=== PATIENT | female | born 1985 | race Caucasian/White ===

== ENCOUNTER 2017-05-13 20:36 | Observation (INO) | payer MEDICAID ==
[2017-05-13] MEDS ORDERED: NIFEdipine 10 MG CAP PO ONE (21:15)
[2017-05-13 21:28] LABS: % IMMATURE GRANULYOCYTES 1.5 % (0.0-1.1); ABSOLUTE IMMATURE GRANULOCYTES 0.13 10^3/uL (0.00-0.10); ADD DIFF? NO; ADD MORPH? YES; ADD SCAN? NO; ATYPICAL LYMPHOCYTE FLAG 10 (0-99); FRAGMENT RBC FLAG 40 (0-99); HEMATOCRIT 35.1 % (38.0-47.0); HEMOGLOBIN 11.4 g/dL (12.6-16.3); LEFT SHIFT FLG 10 (0-99); LIPEMIA HEMOLYSIS FLAG 80 (0-99); MEAN CELL HEMOGLOBIN CONCENTR. 32.5 g/dL (32.4-36.7); MEAN PLATELET VOLUME 10.1 fL (8.7-11.7); PLATELET CLUMPS FLAG 0 (0-99); PLATELET COUNT 172 10^3/uL (150-400); RED BLOOD CELL COUNT 4.56 10^6/uL (4.18-5.33)
[2017-05-13 21:30] LABS: RED CELL DISTRIBUTION WIDTH 25.3 % (11.5-15.2)
[2017-05-13 21:30] LABS: COLOR YELLOW; LEUKOCYTE ESTERASE,URINE NEGATIVE (NEGATIVE); NITRITE,URINE NEGATIVE (NEGATIVE)
[2017-05-13] MEDS ORDERED: LR 1,000 ML IV ONE (21:30)
[2017-05-13 22:20] LABS: MICROCYTES 2+
[2017-05-13 22:21] LABS: HYPOCHROMIA 2+; PLATELET ESTIMATE ADEQUATE (ADEQ)
[2017-05-13 22:39] LABS: PHENCYCLIDINE URINE BCH < 6 ng/ml (NEGATIVE); PHENCYCLIDINE URINE BCH NEGATIVE (NEGATIVE); TETRAHYDROCANNABINOL URINE < 5 ng/mL (NEGATIVE); TETRAHYDROCANNABINOL URINE NEGATIVE (NEGATIVE)
--- NOTE | 2017-05-13 22:50 | GHP ---
[f rep st] PREOP HISTORY AND PHYSICAL DATE OF ADMISSION: 05/13/2017 CHIEF COMPLAINT: Contractions. HISTORY OF PRESENT ILLNESS: Geovanny is a 31-year-old, G 9, P0-3-5-2 female who is at 28 and 6 week s gestation by 8 week ultrasound, who presents with complaints of painful contractions that happened after being at work all day and walking. She has a history of 2 previous deliveries. She is not currently on 17-hydroxyprogesterone. 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 GYNECOLOGICAL HISTORY: She has had 2 miscarriages, 2 therapeutic abortions, 1 demise and 2 pr eterm births. MEDICATIONS: Include iron, vitamins and Suboxone as well as Lovenox twice daily. She is negative for Factor V Leiden. REVIEW OF SYSTEMS: Is positive for painful contractions. She denies any loss of fluid or vaginal b leeding. PHYSICAL EXAMINATION: VITAL SIGNS: Stable. GENERAL: She is in no apparent distress. ABDOMEN: S oft, nontender. Her cervix is closed, long, and high. heart tones are in the 150s with moder ate variability. She was initially lillian approximately every 2 minutes, which resolved after 1 dose of nifedipine and IV fluid bolus. ASSESSMENT AND PLAN: This is a 31-year-old, G9, P0-3-5-2 female who is at 28 and 6 weeks gestation, had contractions which have now resolved and her cervix not dilated. Will plan on discharg e home. Labor precautions given. She will follow up with her primary riffler tender. /[id number]/MODL
== END 2017-05-13 22:30 | disposition home or self-care (01) ==
LOC: FLD 20:36
PROVIDERS: ADMIT Obstetrics & Gynecology; ATTEND Obstetrics & Gynecology
DX: O60.03 Preterm labor without delivery, third trimester (principal); Z3A.38 38 weeks gestation of pregnancy; O09.213 Supervision of pregnancy with history of pre-term labor, third trimester; O09.293 Supervision of pregnancy with other poor reproductive or obstetric history, third trimester
CPT/HCPCS: 80307; G0480

== ENCOUNTER 2017-05-22 13:26 | Emergency (ER) | payer MEDICAID ==
[2017-05-22 13:37] VITALS: RESP 16; TEMP 98.1
--- NOTE | 2017-05-22 14:28 | CPEKG ---
Heart Rate: 78 RR Interval: 769 P-R Interval: 108 QRSD Interval: 72 QT Interval: 384 QTC Interval: 438 P Gray: 40 QRS Gray: 52 T Wave Gray: 21 EKG Severity - BORDERLINE ECG - EKG Impression: SINUS RHYTHM EKG Impression: SHORT NV INTERVAL, ACCELERATED AV CONDUCTION Electronically Signed By: Iraida Topete 22-May-2017 20:51:23
--- NOTE | 2017-05-22 14:28 | EDPHY ---
H & P Time Seen by Provider: 05/22/17 14:14 HPI/ROS: CHIEF COMPLAINT: Possible seizure, 8 months HISTORY OF PRESENT ILLNESS: This patient is an anticoagulated 31 year old female who is 8 months arriving via EMS following a possible seizure or syncopal episode shortly prior to arrival. She was sitting and began to feel hot and dizzy and got up to go to the bathroom. She felt lightheaded and sat again, then fell to the left and passed out and woke up on floor with her head on her backpack. She denies hitting her head. No prior history of fainting. She currently has a headache which she believes may be a tension headache, localized to the right side. She rates the severity at 8/10. She has had previous similar headaches. She felt nauseous this morning and hasn't eaten much today. She denies current nausea, abdominal pain, or other associated symptoms. She has been taking Suboxone for 5 months to treat heroin withdrawal. She does have history of DVTs with and is currently taking Lovenox. REVIEW OF SYSTEMS: Constitutional: No fever, no chills Eyes: No visual changes ENT: No sore throat Respiratory: No cough, no shortness of breath Cardiac: No chest pain Gastrointestinal: No nausea, no vomiting, no abdominal pain Genitourinary: No hematuria, no dysuria Musculoskeletal: No leg pain or swelling Skin: No rash Neurological: no numbness, no weakness Psychiatric: No depression Past Medical/Surgical History: Blood clots, heroin withdrawal (Suboxone) Social History: Lives in [place]. Sees OB doctor at [facility] [place]. Smoking Status: Current every day smoker Physical Exam: General Appearance: Alert, pleasant Eyes: Pupils equal and round, no conjunctival pallor or injection ENT, Mouth: Mucous membranes moist Neck: Normal inspection Respiratory: Lungs are clear to auscultation Cardiovascular: Regular rate and rhythm Gastrointestinal: Abdomen is soft, gravid and non- tender Neurological: Alert, oriented x3, cranial nerves II through XII intact, motor 5 /5, sensory intact to light touch, normal gait. Skin: Warm and dry, no rash Extremities: Nontender, no pedal edema Psychiatric: Mood and affect normal Constitutional: Initial Vital Signs Temperature (C) 36.7 C 05/22/17 13:35 Heart Rate 73 05/22/17 13:35 Respiratory Rate 16 08/09/17 13:35 Blood Pressure 123/67 H 05/22/17 13:35 O2 Sat (%) 97 05/22/17 13:35 O2 Delivery Mode Room Air Allergies/Adverse Reactions: No Known Allergies Allergy (Unverified 05/01/15 11:11) Home Medications: Medication Instructions Recorded Ondansetron Odt [Zofran Odt 4 mg 4 mg PO Q4 PRN #10 tab 05/01/15 (RX)] Lovenox 05/22/17 SUBOXONE 8mg/2mg 05/22/17 Medical Decision Making ED Course/Re-evaluation: This is an 8 month female who presents after a syncopal episode. I doubt primary seizure in this patient, given prodromal symptoms of dizziness and diaphoresis. She did not hit her head. However she has a moderate tension headache. Tylenol given at her request. She did not eat breakfast this morning so she was given food and fluids. There is no evidence of preeclampsia/ eclampsia, with a normal blood pressure, no proteinuria and normal labs. 15:40 Reassessed the patient. She is feeling better. Plan to discharge home in good condition when her ride arrives. I will continue to observe her until that time. The patient is comfortable with this plan. 16:28 Reassessed patient. Her headache has nearly completely resolved after Tylenol. I do not suspect intracranial hemorrhage or primary seizure in this patient. Plan to proceed with discharge as above. She will follow up with her OB doctor. Differential Diagnosis: Differential diagnosis includes though is not limited to cardiac dysrhythmia, CVA, TIA, GI bleed, sepsis, hypoglycemia. - Data Points Laboratory Results: Laboratory Results 05/22/17 14:15 05/22/17 14:15 05/22/17 05/22/17 14:15 14:15 WBC 9.28 10^3/uL 10^3/uL (3.80-9.50) RBC 4.51 10^6/uL 10^6/uL (4.18-5.33) Hgb 11.4 g/dL L g/dL (12.6-16.3) Hct 36.0 % L % (38.0-47.0) MCV 79.8 fL L fL (81.5-99.8) MCH 25.3 pg L pg (27.9-34.1) MCHC 31.7 g/dL L g/dL (32.4-36.7) RDW 24.7 % H % (11.5-15.2) Plt Count 240 10^3/uL 10^3/uL (150-400) MPV 10.5 fL fL (8.7-11.7) Neut % (Auto) 62.4 % % (39.3-74.2) Lymph % (Auto) 27.0 % % (15.0-45.0) Grand % (Auto) 6.6 % % (4.5-13.0) Eos % (Auto) 0.8 % % (0.6-7.6) Baso % (Auto) 0.6 % % (0.3-1.7) Nucleat RBC Rel Count 0.0 % % (0.0-0.2) Absolute Neuts (auto) 5.79 10^3/uL 10^3/uL (1.70-6.50) Absolute Lymphs (auto) 2.51 10^3/uL 10^3/uL (1.00-3.00) Absolute Monos (auto) 0.61 10^3/uL 10^3/uL (0.30-0.80) Absolute Eos (auto) 0.07 10^3/uL 10^3/uL (0.03-0.40) Absolute Basos (auto) 0.06 10^3/uL 10^3/uL (0.02-0.10) Absolute Nucleated RBC 0.00 10^3/uL 10^3/uL (0-0.01) Immature Gran % 2.6 % H % (0.0-1.1) Immature Gran # 0.24 10^3/uL H 10^3/uL (0.00-0.10) Platelet Estimate ADEQUATE (ADEQ) Hypochromasia 1+ H Oval Macrocytes 1+ H Sodium 135 mEq/L mEq/L (134-144) Potassium 3.7 mEq/L mEq/L (3.5-5.2) Chloride 104 mEq/L mEq/L (97-110) Carbon Dioxide 21 mEq/l L mEq/l (22-31) Anion Gap 10 mEq/L mEq/L (8-16) BUN 7 mg/dL mg/dL (7-23) Creatinine 0.7 mg/dL mg/dL (0.6-1.0) Estimated GFR > 60 Glucose 78 mg/dL mg/dL (70-100) Calcium 8.9 mg/dL mg/dL (8.5-10.4) Total Bilirubin 0.3 mg/dL mg/dL (0.1-1.4) Conjugated Bilirubin 0.3 mg/dL mg/dL (0.0-0.5) Unconjugated Bilirubin 0.0 mg/dL mg/dL (0.0-1.1) AST 17 IU/L IU/L (14-46) ALT 28 IU/L IU/L (9-52) Alkaline Phosphatase 72 IU/L IU/L (38-126) Total Protein 5.9 g/dL L g/dL (6.3-8.2) Albumin 3.1 g/dL L g/dL (3.5-5.0) Medications Given: Discontinued Medications Acetaminophen (Tylenol) 650 mg PO EDNOW ONE Stop: 05/22/17 14:44 Last Admin: 05/22/17 14:54 Dose: 650 mg Departure - Departure Disposition: Home, Routine, Self-Care Clinical Impression: Syncope Qualifiers: Syncope type: vasovagal syncope Qualified Code(s): R55 - Syncope and collapse Condition: Good Instructions: Syncope (ED) Additional Instructions: 1. Follow up with your OB doctor in 1-2 days. We have also referred you to our OB doctor solution design engineer in case you have trouble following up with your regular OB. 2. Return to the emergency department for repeat episodes of fainting, severe headache, shortness of breath, chest pain, weakness or numbness, or other worsening of condition. Referrals: Georgie Roberts MD [Medical Doctor] - As per Instructions Report Scribed for: Iraida Topete Report Scribed by: Mona Calderon Date of Report: 05/22/17 Time of Report: 14:27 Physician Review and Approval Statement: 05/22/17 14:27 Portions of this note were transcribed by a medical center representative. I personally performed a history, physical exam, medical decision making, and confirmed accuracy of information the transcribed note.
[2017-05-22 14:31] VITALS: O2SAT 95
[2017-05-22 14:35] LABS: % IMMATURE GRANULYOCYTES 2.6 % (0.0-1.1); ABSOLUTE IMMATURE GRANULOCYTES 0.24 10^3/uL (0.00-0.10); ADD DIFF? NO; ADD MORPH? YES; ADD SCAN? NO; ATYPICAL LYMPHOCYTE FLAG 10 (0-99); FRAGMENT RBC FLAG 60 (0-99); HEMOGLOBIN 11.4 g/dL (12.6-16.3); LEFT SHIFT FLG 20 (0-99); LIPEMIA HEMOLYSIS FLAG 80 (0-99); MEAN CELL HEMOGLOBIN 25.3 pg (27.9-34.1); MEAN CELL HEMOGLOBIN CONCENTR. 31.7 g/dL (32.4-36.7); MEAN CELL VOLUME 79.8 fL (81.5-99.8); MEAN PLATELET VOLUME 10.5 fL (8.7-11.7); PLATELET CLUMPS FLAG 10 (0-99); PLATELET COUNT 240 10^3/uL (150-400); RED BLOOD CELL COUNT 4.51 10^6/uL (4.18-5.33)
[2017-05-22 14:39] LABS: RED CELL DISTRIBUTION WIDTH 24.7 % (11.5-15.2)
[2017-05-22] MEDS ORDERED: ACETAMINOPHEN 325 MG TAB PO ONE (14:43)
[2017-05-22 14:53] LABS: ALANINE AMINOTRANSFERASE 28 IU/L (9-52); ALBUMIN 3.1 g/dL (3.5-5.0); ALKALINE PHOSPHATASE 72 IU/L (38-126); ANION GAP 10 mEq/L (8-16); ASPARTATE AMINOTRANSFERASE 17 IU/L (14-46); BILIRUBIN,TOTAL 0.3 mg/dL (0.1-1.4); BILIRUBIN-CONJUGATED 0.3 mg/dL (0.0-0.5); CALCIUM 8.9 mg/dL (8.5-10.4); CARBON DIOXIDE 21 mEq/l (22-31); CHLORIDE 104 mEq/L (97-110); CREATININE 0.7 mg/dL (0.6-1.0); GLOMERULAR FILTRATION RATE > 60; GLUCOSE 78 mg/dL (70-100); POTASSIUM 3.7 mEq/L (3.5-5.2); SODIUM 135 mEq/L (134-144); TOTAL PROTEIN 5.9 g/dL (6.3-8.2)
[2017-05-22 15:43] LABS: HYPOCHROMIA 1+; MACROCYTES 1+; PLATELET ESTIMATE ADEQUATE (ADEQ)
[2017-05-22 16:58] VITALS: BP 97/61; PULSE 77
== END 2017-05-22 16:54 | disposition home or self-care (01) ==
LOC: EDUNIT#
DX: O99.89 Other specified diseases and conditions complicating pregnancy, childbirth and the puerperium (principal); R55 Syncope and collapse; F17.200 Nicotine dependence, unspecified, uncomplicated; Z3A.00 Weeks of gestation of pregnancy not specified

== ENCOUNTER 2017-06-27 11:15 | Observation (INO) | payer MEDICAID ==
--- NOTE | 2017-06-27 12:04 | SOAPPROG ---
SOAP Progress Note Assessment/Plan: Assessment: 31yo @ 35-2wks by 8wk US No evidence of PTL or SROM h/o DVT- currently on anticoagulants Opiate Dependence h/o demise Plan: f/u with OB provider cont meds at home UDS, gc/ct, GBS collected d/c home at this time FKC and PTL prec discussed 06/27/17 12:01 06/27/17 13:36 Subjective: Pt presents to L&D with complaints of contractions and pelvic pressure. She denies any LOF, VB. She reports +FM. ROS: 10-point ROS reviewed negative except as pertinent in HPI. Neuro: denies any headaches HEENT: denies any sore throat, congestion CV: denies any CP Resp: denies any SOB, wheezing GI: denies any N/V/diarrhea/constipation : denies any dysuria, urgency pelvic: denies any VB psych: denies any depression/anxiety Skin: denies any rashes Objective: VSS Exam: constitutional: A&Ox3 CV: RRR, no murmur Resp: CTA-B Abd: soft, nontender, gravid SVE: 1/th/high Extremities: trace edema FHR: cat 1 FHR tracing - Time Spent With Patient Time Spent With Patient: approx 45min was spent with patient of which >50% , 20 min, was spent on direct/ face to face counseling and coordination of care. - Pending Discharge Pending Discharge Within 24 Hours: Yes Pending Discharge Date: 06/28/17 Pending Discharge Time: 11:00 ICD10 Worksheet Patient Problems: Problems Problem Status Onset Labor, false (Rich-Hickman), antepartum Acute Opioid dependence Acute
[2017-06-27 15:43] LABS: PHENCYCLIDINE URINE BCH < 6 ng/ml (NEGATIVE); PHENCYCLIDINE URINE BCH NEGATIVE (NEGATIVE); TETRAHYDROCANNABINOL URINE < 5 ng/mL (NEGATIVE); TETRAHYDROCANNABINOL URINE NEGATIVE (NEGATIVE)
== END 2017-06-27 13:30 | disposition home or self-care (01) ==
LOC: FLD 11:15
PROVIDERS: ADMIT Advanced Practice Midwife; ATTEND Obstetrics & Gynecology
DX: O47.03 False labor before 37 completed weeks of gestation, third trimester (principal); Z3A.35 35 weeks gestation of pregnancy
CPT/HCPCS: 80307; G0480

== ENCOUNTER 2017-06-30 15:16 | Emergency (ER) | payer MEDICAID ==
[2017-06-30 15:36] VITALS: BP 122/68; PULSE 85; RESP 18; TEMP 98.4; O2SAT 96
--- NOTE | 2017-06-30 15:48 | EDPHY ---
H & P Stated Complaint: 39 weeks preg, need refill Suboxone till apt . HPI/ROS: Chief complaint: Suboxone refill History of present illness: 31 year old female who is 39 weeks presents for Suboxone refill. Patient states she has a few doses get her through until she can see her doctor this week. She has no specific complaints at this time. - Personal History LMP (Females 10-55): Current Tetanus/Diphtheria Vaccine: Unsure Current Tetanus Diphtheria and Acellular Pertussis (TDAP): Unsure - Medical/Surgical History Hx Asthma: No Hx Chronic Respiratory Disease: No Hx Diabetes: No Hx Cardiac Disease: No Hx Renal Disease: No Hx Cirrhosis: No Hx Alcoholism: No Hx HIV/AIDS: No Hx Splenectomy or Spleen Trauma: No Other PMH: DVT L Leg- at present 1500hrs 06/30/2017, suboxone use history of drug abuse. - Social History Smoking Status: Former smoker - Physical Exam Exam: General: Alert, nontoxic Skin: Warm, no rashes. Constitutional: Initial Vital Signs Temperature (C) 36.9 C 06/30/17 15:31 Heart Rate 85 06/30/17 15:31 Respiratory Rate 18 06/30/17 15:31 Blood Pressure 122/68 H 06/30/17 15:31 O2 Sat (%) 96 06/30/17 15:31 O2 Delivery Mode Room Air Allergies/Adverse Reactions: No Known Allergies Allergy (Verified 06/30/17 15:36) Home Medications: Medication Instructions Recorded Lovenox 05/22/17 SUBOXONE 8mg/2mg 05/22/17 Medical Decision Making ED Course/Re-evaluation: Patient is discussed with my primary supervising physician Dr. Iraida Topete. Patient presents to the emergency department for a Suboxone refill. I have discussed with the patient that we do not refill these medications in the emergency department. She states it is her OBGYN that normally prescribes it to her from [facility]. I have recommended she go to [facility] for a refill of her Suboxone. Departure - Departure Disposition: Home, Routine, Self-Care Clinical Impression: Medication refill Condition: Good Referrals: BELKIS PANIAGUA [Other] - As per Instructions
== END 2017-06-30 15:52 | disposition home or self-care (01) ==
DX: Z76.0 Encounter for issue of repeat prescription (principal); Z87.891 Personal history of nicotine dependence; Z3A.39 39 weeks gestation of pregnancy

== ENCOUNTER 2017-07-08 20:15 | Observation (INO) | payer MEDICAID | END 2017-07-08 22:29 | disposition home or self-care (01) | LOC: FLD 20:15 | PROVIDERS: ADMIT Obstetrics & Gynecology; ATTEND Obstetrics & Gynecology | DX: O26.853 Spotting complicating pregnancy, third trimester (principal); Z3A.36 36 weeks gestation of pregnancy | CPT/HCPCS: 59025; G0378 ==

== ENCOUNTER 2017-07-18 23:35 | Inpatient (IN) | payer MEDICAID ==
[2017-07-19] MEDS ORDERED: TERBUTALINE SULFATE 1 MG/ML VIAL IV PRN (00:35)
[2017-07-19] MEDS ORDERED: OXYTOCIN/RINGERS LACTATE 1,000 ML IV PRN (00:35)
[2017-07-19] MEDS ORDERED: LR 1,000 ML IV PRN (00:35)
[2017-07-19] MEDS ORDERED: IBUPROFEN 600 MG TAB PO PRN (00:35)
[2017-07-19] MEDS ORDERED: OLIVE OIL 118 ML BTL MISC PRN (00:35)
[2017-07-19] MEDS ORDERED: EPSOM SALT 454 GM TP PRN (00:35)
[2017-07-19] MEDS ORDERED: AMPICILLIN SODIUM 2 GM in NS 100 ML IV ONE (00:35)
[2017-07-19 00:57] LABS: % IMMATURE GRANULYOCYTES 1.6 % (0.0-1.1); ABSOLUTE IMMATURE GRANULOCYTES 0.25 10^3/uL (0.00-0.10); ADD DIFF? NO; ADD MORPH? NO; ADD SCAN? NO; ATYPICAL LYMPHOCYTE FLAG 0 (0-99); FRAGMENT RBC FLAG 20 (0-99); HEMATOCRIT 36.6 % (38.0-47.0); HEMOGLOBIN 12.2 g/dL (12.6-16.3); LEFT SHIFT FLG 10 (0-99); LIPEMIA HEMOLYSIS FLAG 80 (0-99); MEAN CELL HEMOGLOBIN 27.6 pg (27.9-34.1); MEAN CELL HEMOGLOBIN CONCENTR. 33.3 g/dL (32.4-36.7); MEAN CELL VOLUME 82.8 fL (81.5-99.8); MEAN PLATELET VOLUME 10.7 fL (8.7-11.7); PLATELET CLUMPS FLAG 0 (0-99); PLATELET COUNT 186 10^3/uL (150-400); RED BLOOD CELL COUNT 4.42 10^6/uL (4.18-5.33); RED CELL DISTRIBUTION WIDTH 18.7 % (11.5-15.2)
[2017-07-19] MEDS ORDERED: LIDOCAINE 1% 300 MG/30 ML SDV ONE (01:14)
[2017-07-19] MEDS ORDERED: AMMONIA AROMATIC 1 EACH AMP IH ONE (01:14)
[2017-07-19] MEDS ORDERED: OLIVE OIL 118 ML BTL ONE (01:14)
[2017-07-19] MEDS ORDERED: TERBUTALINE SULFATE 1 MG/ML VIAL ONE (01:14)
[2017-07-19] MEDS ORDERED: MISOPROSTOL 200 MCG TAB ONE (01:15)
[2017-07-19] MEDS ORDERED: OXYTOCIN 10 UNIT/ML VIAL ONE (01:15)
[2017-07-19] MEDS ORDERED: fentaNYL 2MCG/ML/BUP 0.1% RTU 100 ML BAG EP ONE (01:48)
[2017-07-19] MEDS ORDERED: PHENYLEPHRINE HCL 100 MCG/ML SYR ONE (01:48)
[2017-07-19] MEDS ORDERED: BUPIVACAINE 0.25% 30 ML SDV ONE (01:48)
[2017-07-19] MEDS ORDERED: fentaNYL 100 MCG/2 ML INJ ONE ×2 (01:49→01:54)
--- NOTE | 2017-07-19 03:02 | PREANESOB ---
Obstetric Pre-Anesthesia Info - General Info Proposed Procedure: Labor and delivery. : 7 Para: 2 WBD: 38 - Info Status: Full Term Monitors: External FHR Baseline (bpm): 135 FHR Pattern: Reassuring - Labor Status Cervical Dilation per last OB SVE: 3 Indications for Labor Analgesia: Pain Control Labor Epidural: Proposed Anesthesia ROS: Past tonsillectomy and labor epidural x 2. Allergies/Adverse Reactions: Allergy/AdvReac Type Severity Reaction Status Date / Time No Known Allergies Allergy Verified 06/30/17 15:36 Home Medications: Medication Instructions Recorded Lovenox 60 mg SQ BID 05/22/17 SUBOXONE 8mg/2mg 1 mg PO BID 05/22/17 1 tab PO DAILY 07/19/17 Visit Medications: Generic Name Dose Route Start Last Admin Trade Name Freq PRN Reason Stop Dose Admin Ampicillin Sodium 1 gm/ Sodium 100 mls @ 200 mls/hr 07/19/17 04:36 Chloride IV 08/18/17 04:35 Q4H ALEXANDER Protocol Lactated Ringer's 1,000 mls @ 0 mls/hr 07/19/17 00:35 07/19/17 00:33 Lr IV 01/15/18 00:34 1,000 mls PRN PRN Administration SEE PROTOCOL CONDITIONS Protocol Per Protocol Oxytocin/Lactated Ringer's 1,000 mls @ 150 mls/hr 07/19/17 00:35 Pitocin 20 Units/Lr (Premix) IV PRN PRN Post- bleeding Ibuprofen 600 mg 07/19/17 00:35 Motrin PO 01/15/18 00:34 Q6HRS PRN post , inflammation Magnesium Sulfate 454 gm 07/19/17 00:35 Epsom Salt TP 01/15/18 00:34 Q1H PRN perineal discomfort [place] Oil 118 ml 07/19/17 00:35 Sweet Oil MISC 01/15/18 00:34 ONCE PRN perineal massage Terbutaline Sulfate 0.25 mg 07/19/17 00:35 Brethine IV 01/15/18 00:34 ONCE PRN Tachysystole Discontinued Medications Generic Name Dose Route Start Last Admin Trade Name Freq PRN Reason Stop Dose Admin Ammonia (Aromatic Spirit) Confirm 07/19/17 01:14 Ammonia Aromatic Administered 07/19/17 01:15 Dose 1 each IH .STK-MED ONE Bupivacaine HCl Confirm 07/19/17 01:48 Sensorcaine 0.25% Sdv Administered 07/19/17 01:49 Dose 30 ml .ROUTE .STK-MED ONE Fentanyl Confirm 07/19/17 01:49 Sublimaze Administered 07/19/17 01:50 Dose 100 mcg .ROUTE .STK-MED ONE Fentanyl Confirm 07/19/17 01:54 Sublimaze Administered 07/19/17 01:55 Dose 100 mcg .ROUTE .STK-MED ONE Fentanyl/Bupivacaine HCl Confirm 07/19/17 01:48 Fentanyl/Bupivacaine/Ns 2 Mcg/Ml 0.1% (Premix Administered 07/19/17 01:49 Dose 100 ml EP .STK-MED ONE Ampicillin Sodium 2 gm/ Sodium 110 mls @ 220 mls/hr 07/19/17 00:35 07/19/17 00:52 Chloride IV 07/19/17 01:04 110 mls ONCE ONE Administration Protocol Lidocaine HCl Confirm 07/19/17 01:14 Lidocaine Hcl 1% Administered 07/19/17 01:15 Dose 300 mg .ROUTE .STK-MED ONE Misoprostol Confirm 07/19/17 01:15 Cytotec Administered 07/19/17 01:16 Dose 800 mcg .ROUTE .STK-MED ONE [place] Oil Confirm 07/19/17 01:14 Sweet Oil Administered 07/19/17 01:15 Dose 118 ml .ROUTE .STK-MED ONE Oxytocin Confirm 07/19/17 01:15 Pitocin Administered 07/19/17 01:16 Dose 40 unit .ROUTE .STK-MED ONE Phenylephrine HCl Confirm 07/19/17 01:48 Neosynephrine Administered 07/19/17 01:49 Dose 1,000 mcg .ROUTE .STK-MED ONE Terbutaline Sulfate Confirm 07/19/17 01:14 Brethine Administered 07/19/17 01:15 Dose 1 mg .ROUTE .STK-MED ONE - Anesthesia History Response to Local Anesthetics: Normal Anesthesia & Operative History: No Prior Problems Family Anesthesia History: Negative - Social History Substance Use/Abuse: Drug Use/Abuse (Taking suboxone to recover from heroin usage.) - Focused Exam Blood Pressure: 117/76 Heart Rate: 102 Height/Weight (Nursing): Height 180.34 cm Weight 81.647 kg Airway: No abnormalities Physical Exam: Within normal limits. ASA Status: II Labs: 07/19/17 00:33 Patient ABO/Rh A POSITIVE 07/19/17 00:33 - Plan Anesthetic Plan: LISA Consent Signed and on Chart: Yes Patient/Guardian Understands and Agrees to Plan: Yes Urgent/Emergent Case: Vick walls completed preop but documented later for safe timely pt care
--- NOTE | 2017-07-19 03:07 | POSTANESTH ---
Post Anesthetic Evaluation Cardiovascular Status: Normal, Stable Respiratory Status: Normal, Stable Level of Consciousness/Mental Status: Can Participate in Eval Pain Control: Adequate, Prn Tx Ordered Complications Possibly Related to Anesthesia: None Noted
[2017-07-19] MEDS ORDERED: ONDANSETRON 4 MG/2 ML VIAL IVP PRN (03:08)
[2017-07-19] MEDS ORDERED: PHENYLEPHRINE HCL 100 MCG/ML SYR IVP PRN (03:08)
[2017-07-19] MEDS ORDERED: fentaNYL 2MCG/ML/BUP 0.1% RTU 100 ML EP SCH (03:30)
[2017-07-19] MEDS ORDERED: LR 500 ML IV SCH (03:30)
[2017-07-19] MEDS ORDERED: AMPICILLIN SODIUM 1 GM in NS 100 ML IV SCH (04:36)
[2017-07-19] MEDS ORDERED: LR 500 ML IV PRN (08:51)
[2017-07-19] MEDS ORDERED: OXYTOCIN/RINGERS LACTATE 500 ML IV SCH ×2 (09:00→09:30)
[2017-07-19] MEDS ORDERED: OXYTOCIN/LR *STANDARD DOSE PROTOCOL IV SCH (09:30)
[2017-07-19] MEDS ORDERED: OXYTOCIN/RINGERS LACTATE 1,000 ML IV SCH (09:30)
[2017-07-19] MEDS ORDERED: OXYTOCIN 20 UNIT in LR 1,000 ML IV SCH (09:30)
[2017-07-19 09:46] LABS: PHENCYCLIDINE URINE BCH < 6 ng/ml (NEGATIVE); PHENCYCLIDINE URINE BCH NEGATIVE (NEGATIVE); TETRAHYDROCANNABINOL URINE < 5 ng/mL (NEGATIVE); TETRAHYDROCANNABINOL URINE NEGATIVE (NEGATIVE)
[2017-07-19] MEDS ORDERED: ACETAMINOPHEN 325 MG TAB PO PRN (14:11)
--- NOTE | 2017-07-19 16:07 | OBDEL ---
Info Type: Vaginal Presentation at Delivery: Vertex L&D Analgesia/Anesthesia Type: Epidural GBS+: No Intrapartum Medications: Generic Name Dose Route Start Last Admin Trade Name Chan PRN Reason Stop Dose Admin Acetaminophen 325 - 650 mg 07/19/17 14:11 07/19/17 16:02 Tylenol PO 01/15/18 14:10 650 mg Q4HRS PRN Administration Pain, Mild Lactated Ringer's 1,000 mls @ 0 mls/hr 07/19/17 00:35 07/19/17 00:33 Lr IV 01/15/18 00:34 1,000 mls PRN PRN Administration SEE PROTOCOL CONDITIONS Protocol Per Protocol Lactated Ringer's 500 mls @ 0 mls/hr 07/19/17 03:30 07/19/17 09:00 Lr IV 01/15/18 03:29 500 mls CONT ALEXANDER Administration As Directed Oxytocin 30 unit/ Lactated 503 mls @ 0 mls/hr 07/19/17 09:30 07/19/17 09:39 Ringer's IV 01/15/18 09:29 503 mls CONT ALEXANDER Administration Protocol Per Protocol Ibuprofen 600 mg 07/19/17 00:35 07/19/17 13:08 Motrin PO 01/15/18 00:34 600 mg Q6HRS PRN Administration post , inflammation Discontinued Medications Generic Name Dose Route Start Last Admin Trade Name Chan PRN Reason Stop Dose Admin Ampicillin Sodium 2 gm/ Sodium 110 mls @ 220 mls/hr 07/19/17 00:35 07/19/17 00:52 Chloride IV 07/19/17 01:04 110 mls ONCE ONE Administration Protocol - Care Provider Rim Roller Operator/[employer] ARCHITECT: Chepe Silver Indications for Delivery: SROM Vaginal Delivery - Delivery Provider Delivery Physician/CNM: Georgie Roberts - Labor and Delivery Onset of Contractions Date: 07/18/17 Onset of Contractions Time: 23:45 Onset of Contractions Type: Induced Rupture of Membranes Date: 07/18/17 Rupture of Membranes Time: 22:30 Rupture of Membranes Type: Spontaneous Amniotic Fluid Color: Clear Dilation Complete Date: 07/19/17 Dilation Complete Time: 12:23 Placenta Delivery Date: 07/19/17 Placenta Delivery Time: 12:42 Total Hours of Labor: 12 Vaginal Sponge Count Correct: Yes Vaginal Needle Count Correct: Yes Vaginal Sweep Performed: Yes EBL: 350 Delivery Events: Nuchal Cord (x2) - Medications Labor Augmentation/Induction Methods Used: Pitocin (SROM, no labor) [employer] [place] Delivery Date: 07/19/17 Delivery Time: 12:37 JUVENCIO: 07/30/17 Gestational Age: 38 week(s) and 3 day(s) Sex of : Male (Gamal) Score (1 Min): 8 Score (5 Min): 9 ICD10 Worksheet Patient Problems: Problems Problem Status Onset DVT (deep vein thrombosis) in Acute (spontaneous vaginal delivery) Acute Opioid dependence Acute
[2017-07-19] MEDS: IBUPROFEN 600 MG TAB PO PRN (20:27)
[2017-07-19] MEDS: DOCUSATE SODIUM 100 MG CAP PO PRN (20:27)
[2017-07-19] MEDS ORDERED: SUBOXONE SL SCH (21:00)
[2017-07-19] MEDS: MELATONIN 3 MG TAB PO SCH (22:25)
[2017-07-19] MEDS: SUBOXONE SL SCH (22:26)
[2017-07-20] MEDS: IBUPROFEN 600 MG TAB PO PRN ×4 (02:58→21:08)
[2017-07-20] MEDS: DOCUSATE SODIUM 100 MG CAP PO PRN ×2 (09:04→21:07)
[2017-07-20] MEDS: SUBOXONE SL SCH ×2 (09:05→21:45)
[2017-07-20] MEDS: ENOXAPARIN 60 MG/0.6 ML SYR SC SCH ×2 (09:11→21:08)
[2017-07-20 09:46] VITALS: O2SAT 95
--- NOTE | 2017-07-20 13:56 | OBPP ---
Progress Note Assessment/Plan: Assessment: PPD 1 s/p h/o heroin, on soboxone h/o DVT on Lovenox baby with bilat pneumothorax after delivery, improved today on RA Plan: Routine care, perinatal social worker to asses, mild anemia on iron cont soboxone and lovenox 07/20/17 13:52 07/20/17 13:57 Subjective/ Course: 07/20/17 13:55 Pt doing well. Feels cramps when BF and pumping, managed with ibu. urinating fine. bld is moderate and reducing. baby is latching well. Baby had much improvement on xray this am and is on room air. Objective: 07/20/17 03:30 Patient ABO/Rh A POSITIVE 07/19/17 00:33 Temp Pulse Resp BP Pulse Ox 36.1 C 70 22 H 105/63 95 07/20/17 09:30 07/20/17 09:30 07/20/17 09:30 07/20/17 09:30 07/20/17 09:30 Uterine Position/Fundal Height: Umbilicus -1 Uterine Tone: Firm Physical Exam - Physical Exam Abdomen: non-tender, soft, other (FF at umb -1) Skin: normal color, warm/dry Neuro/Psych: alert, normal mood/affect
[2017-07-20] MEDS: IRON POLYSAC/IRON HEME 28 MG TAB PO SCH (15:37)
--- NOTE | 2017-07-20 16:06 | GHP ---
[f rep st] PREOP HISTORY AND PHYSICAL DATE OF ADMISSION: 07/18/2017 HISTORY OF PRESENT ILLNESS: The patient is a 31-year-old G7, P2, A4, who was admitted at 38 weeks an d 5 days with history of spontaneous rupture of membranes late in the evening on 07/18. The patient upon admission had obvious rupture of membranes with clear fluid. She had rupture of membranes at 10 :30 p.m., and began contractions thereafter. The patient was admitted to the hospital, and brendon forman was given an epidural for labor comfort early in the hours of 07/19. Upon my first visit with the patient early on 07/19, the patient was resting comfortably with an epidural and had category 1 heart tracings. The patient's contractions were occasionally noted on monitoring. Fluid was contin uing to be clear. The patient walked into [facility] after having received her care at [facility]. The patient has been staying at mother's house in [place]. dating is by an 8 week ultrasound as referenced in the [facility] record. However, no documentation of that ultrasound found. The patient's has been complicated with history of heroin addiction, and the patien t has been on Suboxone through the , as well as a significant left lower extremity DVT in [facility] of 2016, and the patient has been on therapeutic Lovenox dose throughout the . HISTORY: Records obtained from [facility] review the care visits up to 04/23. There wa s no note of a visit since that time. The patient had full labs, including maternal blood t ype A positive with negative antibody screen, rubella immune, hepatitis B surface antigen negative, H IV negative, RPR nonreactive. GBS culture negative. Gonorrhea test negative. One-hour Glucola test normal. A report of an anatomic this ultrasound screening that was reassuring, but no details of th at ultrasound. Factor V Leiden negative. Negative beta 2 glycoprotein. Negative lupus anticoagulan t. Unsure if the patient has had any care since April. She was not ever transition to hepar in, however, that was the plan noted in April. By the records, the patient has reduced the Suboxone d ose from 4 mg twice daily to 2 mg twice daily and has been managing symptoms with 1 mg twice daily wi thout cravings, withdrawal, or side effects. PAST MEDICAL HISTORY: Heroin addiction, smoking, history of a significant left DVT, acne. PAST SURGICAL HISTORY: Negative. PAST OBSTETRIC HISTORY: Two early miscarriages, and an early TAB, and a loss in the second trimester. One vaginal delivery at 34 weeks after early rupture of membranes, delivering a viable f emale. One vaginal delivery of a viable female at 36 weeks. The patient does not have custody of th ose girls, however has visitation rights as noted in the last visit at [facility]. ALLERGIES: The patient has no known drug allergies. CURRENT MEDICATIONS: Suboxone 1 mg twice daily, Lovenox 60 mg twice daily, and the last dose of that was on the night of 07/17/2011. Occasional iron supplementation. SOCIAL HISTORY: The patient smokes approximately a third to half a pack a day, history of heroin add iction, no known sexually transmitted diseases. The patient is currently living at mother's house, a nd her is currently in penitentiary. The patient has supportive parents who are with her during the labor. The patient is anxious about CPS not allowing her to keep this baby due to her history. PHYSICAL EXAM: GENERAL: The patient is a well-developed, well-appearing, nourished white female in no distress at the time I see her. VITAL SIGNS: Have been normal, and the patient has been afebrile since admission. See nursing doctor documentation for those details. The patient has had a categor y 1 tracing with heart tones in the 130s with accelerations and good variability. Contractions not regular on the monitoring. PELVIC: Initial exam is performed, and the patient is 4 cm dilated, 90% effaced, -1 station. Clear fluid is noted on exam. Baby is vertex presentation. EXTREMITIES: Nontender. ASSESSMENT: Intrauterine at 38 weeks and 5 days with spontaneous rupture of membranes at 1 0:30 p.m. with spontaneous onset of contractions thereafter. Currently, comfortable with an epidural , but no cervical change and inadequate labor pattern. complicated by a heroin addiction, on Suboxone, and history of significant left lower extremity deep vein thrombosis, on Lovenox, last d ose on 07/17. The patient is a smoker. PLAN: [place] Pit[facility] to increase the contraction pattern, and expect a vaginal delivery. We will reinitiate therapeutic Lovenox after delivery, and continue the Suboxone. CPS will be involved. /[id number]/MODL
--- NOTE | 2017-07-20 16:41 | ASMTCMCOM ---
CM Note CM Note Notes: PABLO gave to yesterday. MOC per H&P, used heroin early in her has been suboxone for the rest of her . Also per H&P, pt has two children that she does not have custody of but does have visitation rights. Per RN, is showing signs of mild irritability and is on a bili blanket. It is unclear when infant will be ready for DC. Went to meet with PABLO to discuss her living situation, hx of drug use and plans for future. MOC had relatives visiting. RN suggested a SW visit tomorrow. CPS will need to called to report PABLO's drug use per protocol. Date Signed: 07/20/2017 04:41 PM Electronically Signed By:Farideh Corcoran LCSW
[2017-07-20 20:50] VITALS: BP 111/70; PULSE 73; RESP 18; TEMP 95.5
[2017-07-20] MEDS: MELATONIN 3 MG TAB PO SCH (21:02)
--- NOTE | 2017-07-21 10:30 | OBPP ---
Progress Note Assessment/Plan: Assessment: p3 ppd# 2 s/p hx dvt in - on lovenox 60 mg bid hx heroin abuse - on suboxone breast feeding and pumping Plan: [facility] lovenox until 6 weeks post follow up with her provider as directed by them. follow up by 6 weeks baby disposition per social media strategist 07/21/17 10:27 Subjective/ Course: 07/20/17 13:55 Pt doing well. Feels cramps when BF and pumping, managed with ibu. urinating fine. bld is moderate and reducing. baby is latching well. Baby had much improvement on xray this am and is on room air. 07/21/17 10:28 patient is doing well. pain is well controlled. normal lochia. pumping and breast feeding is going well. denies headache and changes in vision. ambulating. voiding without difficulty. [facility]. baby disposition per social media strategist. doing well with lovenox. has enough for post period. Objective: 07/20/17 03:30 Patient ABO/Rh A POSITIVE 07/19/17 00:33 Temp Pulse Resp BP Pulse Ox 35.3 C L 73 18 111/70 95 07/20/17 20:00 07/20/17 20:00 07/20/17 20:00 07/20/17 20:00 07/20/17 20:00 Uterine Position/Fundal Height: Umbilicus -2 Physical Exam - Physical Exam Neck: non-tender, full range of motion, supple Respiratory: chest non-tender, lungs clear, normal breath sounds Cardiac/Chest: normal peripheral pulses, regular rate, rhythm Abdomen: normal bowel sounds, non-tender Extremities: normal range of motion, non-tender, normal inspection, normal capillary refill Skin: normal color, warm/dry Neuro/Psych: no motor/sensory deficits, alert, normal mood/affect, oriented x 3
--- NOTE | 2017-07-21 10:33 | OBGCSDC ---
General Delivery Information - General Info : 7 Para: 3 Abortions: 4 Type: Vaginal L&D Analgesia/Anesthesia Type: Epidural Admission Date: 07/18/17 Labs: Patient ABO/Rh A POSITIVE 07/19/17 00:33 Hct 34.6 % (38.0-47.0) L 07/20/17 03:30 - Hospital Course Antepartum: 07/21/17 10:32 care - limited -in [place]. HX dvt in - on lovenox 60 bid. hx heroin abuse. stable on suboxone. staying at mother house. does not have custody of her other two children but has visitation. : 07/20/17 13:55 Pt doing well. Feels cramps when BF and pumping, managed with ibu. urinating fine. bld is moderate and reducing. baby is latching well. Baby had much improvement on xray this am and is on room air. 07/21/17 10:28 patient is doing well. pain is well controlled. normal lochia. pumping and breast feeding is going well. denies headache and changes in vision. ambulating. voiding without difficulty. [facility] baby disposition per pediatric social worker. doing well with lovenox. has enough for post period. Vaginal - Delivery Provider Delivery Physician/CNM: Georgie Roberts - Diagnosis Labor: Induced Rupture of Membranes Type: Spontaneous Amniotic Fluid Color: Clear Delivery Events: Nuchal Cord (x2) - Delivery EBL: 350 [address] [place] Delivery Date: 07/19/17 Delivery Time: 12:37 JUVENCIO: 07/30/17 Gestational Age: 38 week(s) and 5 day(s) Sex of Infant: Male Weight (gm): 3249 kg Score (1 Min): 8 Score (5 Min): 9 Discharge Information - Discharge Information Condition: Good Instruction/Follow Up: Six Weeks (with her ob provider in [place])
[2017-07-21] MEDS: SUBOXONE SL SCH (11:15)
[2017-07-21] MEDS: IRON POLYSAC/IRON HEME 28 MG TAB PO SCH (11:15)
[2017-07-21] MEDS: IBUPROFEN 600 MG TAB PO PRN (11:16)
[2017-07-21] MEDS: ENOXAPARIN 60 MG/0.6 ML SYR SC SCH (12:47)
--- NOTE | 2017-07-21 13:36 | ASMTCMCOM ---
CM Note CM Note Notes: Patient reports that she lives at [facility] in [place]. She was in heroin tx her first trimester at [facility] in [facility]. 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 She has been in contact with her CM through [facility], Janet [facility] [phone]. This CM also contacted Janet about patient's L&D and discharge to her parent's home for 1 week. After the week with her parents, she will return to [facility] to complete her training, parenting classes, etc. [facility] provides for all the baby items and connects her with [facility], WIC, etc. FOC is incarcerated but may now be in a jail house. She is hoping to assume custody on her other 2 children-girls by September. Baby doing well. Date Signed: 07/21/2017 01:35 PM Electronically Signed By:Darlene Rojo LCSW
== END 2017-07-21 15:27 | disposition home or self-care (01) | DRG 775 ==
LOC: FLD 23:35 → OBSVTOIN 23:35 → FOB 07-19 16:03
PROVIDERS: ADMIT Obstetrics & Gynecology; ATTEND Obstetrics & Gynecology
PROC: 10E0XZZ Delivery of Products of Conception, External Approach (ICD-10-PCS; principal; 2017-07-19)
DX: O69.89X0 Labor and delivery complicated by other cord complications, not applicable or unspecified (principal); O99.013 Anemia complicating pregnancy, third trimester; F11.21 Opioid dependence, in remission; Z86.718 Personal history of other venous thrombosis and embolism; D50.9 Iron deficiency anemia, unspecified; F17.210 Nicotine dependence, cigarettes, uncomplicated; O99.333 Smoking (tobacco) complicating pregnancy, third trimester; Z79.01 Long term (current) use of anticoagulants; Z3A.38 38 weeks gestation of pregnancy; Z37.0 Single live birth
CPT/HCPCS: 80307; G0480; J0290; J1650; J2370; J2590; J3010; J3105